=== PATIENT | female | born 1995 | race Hispanic/Latino ===

== ENCOUNTER 2020-11-07 09:20 | Emergency (ER) | payer OTHER ==
[~2020-11-07] VITALS: Ht 154.9 cm; Wt 80.4 kg
[2020-11-07 11:00] LABS: BASO % 0.2 % (0.0-1.0); EOS # 0.1 10^3/uL (0.0-0.5); EOS % 1.2 % (0.0-3.0); HEMOGLOBIN 12.9 g/dl (12.0-15.5); LYMPH % 24.5 % (24.0-44.0); MEAN CORPUSCULAR HEMOGLOBIN 28.2 pg (27.0-33.0); MEAN CORPUSCULAR HGB CONC 32.3 g/dl (32.0-36.5); MEAN CORPUSCULAR VOLUME 87.5 fl (80.0-96.0); MONO # 0.5 10^3/uL (0.0-0.8); MONO % 6.2 % (2.0-8.0); NEUTROPHILS # 5.6 10^3/uL (1.5-8.5); NEUTROPHILS % 67.8 % (36.0-66.0); PLATELET COUNT, AUTOMATED 331 10^3/uL (150-450); RED BLOOD COUNT 4.57 10^6/uL (4.00-5.40); WHITE BLOOD COUNT 8.3 10^3/uL (4.0-10.0)
--- NOTE | 2020-11-07 11:01 | REP ---
INDICATION: VAGINAL BLEEDING. Sixteen weeks 0 days by dates. COMPARISON: None. TECHNIQUE: Transabdominal scanning. FINDINGS: Uterine dimensions are normal at 7.6 x 4.4 x 5.3 cm. Uterus is anteverted. Endometrium is 0.7 cm thick. Uterus is empty. No gestational sac is seen. No extra uterine abnormality is observed. No free fluid or adnexal mass is seen. No evidence of ovarian abnormality is seen. IMPRESSION: Empty uterus. No intrauterine gestational sac or for extra uterine free fluid or adnexal mass is seen. Clinical and possibly sonographic follow-up suggested. <Electronically signed by Carter Hector > 11/07/20 [id number]
--- OUTSIDE RECORDS SUMMARY | 2020-11-07 11:05 | CCD ---
Author Author [facility] Organization [facility] Address Unknown Phone Unavailable Support Name Relationship Address Phone EDMAR [place] Next Of Kin [id number] [address] [place] [address] Re-disclosure Warning The records that you are about to access may contain information from federally-assisted alcohol or drug abuse programs. If such information is present, then the following federally mandated warning applies: This information has been disclosed to you from records protected by federal confidentiality rules (42 CFR part 2). The federal rules prohibit you from making any further disclosure of this information unless further disclosure is expressly permitted by the written consent of the person to whom it pertains or as otherwise permitted by 42 CFR part 2. A general authorization for the release of medical or other information is NOT sufficient for this purpose. The Federal rules restrict any use of the information to criminally investigate or prosecute any alcohol or drug abuse patient.The records that you are about to access may contain highly sensitive health information, the redisclosure of which is protected by Article 27-F of the [facility] Public Health law. If you continue you may have access to information: Regarding HIV / AIDS; Provided by facilities licensed or operated by the [facility] Office of Mental Health; or Provided by the [facility] Office for People With Developmental Disabilities. If such information is present, then the following [facility] mandated warning applies: This information has been disclosed to you from confidential records which are protected by state law. State law prohibits you from making any further disclosure of this information without the specific written consent of the person to whom it pertains, or as otherwise permitted by law. Any unauthorized further disclosure in violation of state law may result in a fine or half-way sentence or both. A general authorization for the release of medical or other information is NOT sufficient authorization for further disc losure. Insurance Providers Payer name Policy type / Coverage type Policy ID Covered democrat ID Covered democrat's relationship to davidson Policy Davidson Plan Information [facility] [id number] [facility] [id number]
[2020-11-07 11:10] VITALS: BP 139/75
== END 2020-11-07 12:01 | disposition home or self-care (01) ==
LOC: M ED 09:20
DX: O03.9 Complete or unspecified spontaneous abortion without complication (principal); Z87.59 Personal history of other complications of pregnancy, childbirth and the puerperium; Z88.0 Allergy status to penicillin